=== PATIENT | male | born 1955 | race Caucasian/White ===

== ENCOUNTER → 2016-12-31 | Outpatient (CLI) | payer OTHER ==
[2016-07-19 11:37] VITALS: BP 147/84
[~2016-12-31] MED LIST: ASPI325T4 PO; BUPR150T15 PO; DOXA1TAB2 PO; DOXY100T PO; DULO60CA6 PO; ESCI10TA10 PO; ESCI20TA10 PO; FURO-68 PO; GLIM2TAB2 PO; IMIP50TA3 PO; ISOS30TA4 PO; LURA80TA PO; MELO-150 PO; METO50TA2 PO; NITR0.4T6 SL; OLAN20TA7 PO; OLME1TAB5 PO; OLME40TA PO; OLOP5DRO EACHEYE; OMEG1CAP16 PO; OXYC10TA PO; OXYC10TA32 PO; OXYC1TAB7 PO; OXYC20TA34 PO; POTA20TA12 PO; PREG150C PO; PREG200C PO; SIMV20TA PO; SIMV20TA3 PO; TAMS0.4C2 PO; TIZA4TAB PO; TIZA4TAB8 PO; ZOLP10TA4 PO
--- NOTE | 2016-12-31 10:36 | RAD ---
Lumbar spine radiographs History: Lumbar back pain, history of surgery. Comparison: CT angiography abdomen pelvis 04/20/2013. Findings: AP, lateral, and bilateral oblique views of the lumbar spine, 5 images. L2-3 and L3-4 discectomy changes are seen. There is a presence of bilateral pedicle screws at L2, L3, and L4 with bilateral bridging vertical bars. The hardware appears unchanged from a previous study. Spinal stimulator is seen which enters spinal canal at T12 level. No acute fracture is identified. L5-S1 degenerative disc disease is seen with some narrowing of the space. Multilevel facet degeneration is noted. Impression: 1. Postsurgical changes, similar to previous study. 2. No acute osseous abnormality identified.
== END | disposition home or self-care (01) ==
LOC: DXRADRC 10:06
PROVIDERS: ATTEND Physician Assistant
DX: M51.37 Other intervertebral disc degeneration, lumbosacral region (principal)
CPT/HCPCS: 72110

== ENCOUNTER 2017-07-23 22:37 | Emergency (ER) | payer OTHER ==
[~2017-07-23] VITALS: Ht 182.9 cm; Wt 98.0 kg
[~2017-07-23 22:37] MED LIST changes: -ASPI325T4 PO; +ASPI325T8 PO; -ESCI10TA10 PO; -ESCI20TA10 PO; +LEXAPRO10 MG PO; +LEXAPRO20 MG PO; -MELO-150 PO; +MELO15TA23 PO; +NITR0.4T22 SL; -NITR0.4T6 SL; +OLME1TAB25 PO; -OLME1TAB5 PO; -OLME40TA PO; +OLME40TA12 PO; -OXYC10TA32 PO; +OXYC10TA45 PO
[2017-07-23] MEDS ORDERED: NITROGLYCERIN SUBLINGUAL 0.4 MG BOTTLE OF 25. SL PRN (23:15)
[2017-07-23 23:20] VITALS: BP 158/84
[2017-07-23] MEDS: MORPHINE SULFATE 4 MG/ML DISP.SYRIN. IV/SQ PRN (23:20)
[2017-07-23] MEDS ORDERED: ASPIRIN 81 MG TAB.CHEW PO ONE (23:30)
--- NOTE | 2017-07-23 23:34 | EKG ---
[address] [address] Test Date: 2017-07-23 Test Time: 23:15:44 Pat Name: ANDRES GALICIA Department: Room: Gender: M [employer]: CEE : 1955 Requested By: BELKYS PRATHER Order Number: [id number] Reading MD: Isaac Alexander MD Measurements Intervals [place] Rate: 58 P: 11 MI: 236 QRS: -9 QRSD: 108 T: 64 QT: 408 QTc: 404 Interpretive Statements SINUS RHYTHM PVC'S PROLONGED MI INTERVAL CONSISTENT WITH ANTEROSEPTAL INFARCT PROBABLY OLD CONSISTENT WITH INFERIOR INFARCT PROBABLY OLD Electronically Signed On 07-27-2017 14:11:26 CREW LEADER by Isaac Alexander MD
[2017-07-23 23:40] LABS: BASO # 0.1 x10^3/uL (0.0-0.2); BASO % 1 % (0-3); EOS # 0.4 x10^3/uL (0.0-0.7); EOS % 5 % (0-3); HEMATOCRIT 44.8 % (39.0-53.0); HEMOGLOBIN 15.6 g/dL (13.0-17.5); LYMPH # 2.9 x10^3/uL (1.0-4.8); LYMPH % 35 % (24-48); MEAN CORPUSCULAR HEMOGLOBIN 33 pg (25-35); MEAN CORPUSCULAR HGB CONC 35 g/dL (31-37); MEAN CORPUSCULAR VOLUME 94 fL (79-100); MONO # 0.8 x10^3/uL (0.0-1.1); MONO % 10 % (0-9); NEUT # 3.9 x10^3uL (1.8-7.7); NEUT % 48 % (31-73); PLATELET COUNT 199 x10^3/uL (140-400); RED BLOOD COUNT 4.76 x10^6/uL (4.30-5.70); RED CELL DISTRIBUTION WIDTH 13.4 % (11.5-14.5); WHITE BLOOD COUNT 8.1 x10^3/uL (4.0-11.0)
[2017-07-24 00:05] LABS: ALBUMIN 3.2 g/dL (3.4-5.0); ALBUMIN/GLOBULIN RATIO 0.9 (1.0-1.7); CALCIUM 8.5 mg/dL (8.5-10.1); GFR 75.7; POTASSIUM 3.7 mmol/L (3.5-5.1); TOTAL BILIRUBIN 0.2 mg/dL (0.2-1.0); TOTAL PROTEIN 6.8 g/dL (6.4-8.2)
--- NOTE | 2017-07-24 01:44 | EKG ---
[address] [address] Test Date: 2017-07-24 Test Time: 01:36:17 Pat Name: ANDRES GALICIA Department: Room: Gender: M Management Instructor: CEE : 1955 Requested By: BELKYS PRATHER Order Number: [id number] Reading MD: Isaac Alexander MD Measurements Intervals [place] Rate: 50 P: [place]: QRS: 27 QRSD: 108 T: 94 QT: 430 QTc: 394 Interpretive Statements SUSPECT A-PACED RHYTHM NON-SPECIFIC ST/T CHANGES Electronically Signed On 07-27-2017 14:11:45 HAT CONE INSPECTOR by Isaac Alexander MD
--- NOTE | 2017-07-24 02:57 | PHYS DOC ---
Past History Past Medical History: Arthritis, CHF, Diabetes, High Cholesterol, Heart Disease , Hypertension, [place], Other Past Surgical History: Coronary Bypass Surgery Smoking: Less than 1pk/day Alcohol Use: None Drug Use: None Adult General Chief Complaint Chief Complaint: CHEST PAIN HPI HPI Patient is a 61 year old male who presents with chest pain. The patient reports 2 week history of intermittent sharp stabbing chest pain which is left sided, radiates to right chest. Reports associated shortness of breath, denies nausea or diaphoresis. Denies fevers/chills, cough, lower extremity pain/ swelling. 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 Has been intermittent, randomly occurring over past 2 weeks, had pain just prior to arrival here which is less severe now. Also has diabetes, hypertension, CHF, & is a current daily smoker. PCP is Mitchel SMITH, outboard motor assembler is Dr. Garcia. Review of Systems Review of Systems Constitutional: Denies fever or chills Eyes: Denies change in visual acuity HENT: Denies nasal congestion or sore throat Respiratory: Denies cough, reports shortness of breath Cardiovascular: Reports chest pain, denies edema GI: Denies abdominal pain, nausea, vomiting, bloody stools or diarrhea : Denies dysuria or hematuria Musculoskeletal: Denies back pain or joint pain Integument: Denies rash or skin lesions Neurologic: Denies headache, focal weakness or sensory changes All other systems were reviewed and found to be within normal limits, except as documented in this note. Current Medications Current Medications Current Medications Medications (Trade) Dose Ordered Sig/Romain Start Time Stop Time Status Last Admin Dose Admin Aspirin (Children'S Aspirin) 324 mg 1X ONCE 07/23/17 23:30 07/23/17 23:33 DC 07/23/17 23:15 324 MG Morphine Sulfate (Morphine 4mg Syringe) 4 mg PRN Q15MIN PRN 07/23/17 23:15 07/24/17 23:14 07/23/17 23:20 4 MG Nitroglycerin (Nitrostat) 0.4 mg PRN Q5MIN PRN 07/23/17 23:15 Allergies Allergies Allergies Coded Allergies Type Severity Reaction Last Updated Verified gabapentin Allergy Intermediate Itching 07/18/16 Yes Physical Exam Physical Exam Constitutional: Well developed, well nourished, no acute distress, non-toxic appearance. HENT: Normocephalic, atraumatic, bilateral external ears normal, oropharynx moist, nose normal. Eyes: conjunctiva normal, no discharge. Neck: supple, no stridor. Cardiovascular: RRR, no murmurs, no edema. Lungs & Thorax: LCTAB, no wheezing, no respiratory distress. no reproducible tenderness with palpation over anterior chest wall. Abdomen: soft, nontender, nondistended. Skin: Warm, dry, no erythema, no rash. Back: No tenderness. Extremities: No tenderness, no edema. no calf tenderness or swelling. Neurologic: Alert and oriented X 3, no focal deficits noted. Psychologic: Affect normal, judgement normal, mood normal. Current Patient Data Vital Signs Vital Signs Date Time Temp Pulse Resp B/P (MAP) Pulse Ox O2 Delivery O2 Flow Rate FiO2 07/23/17 23:20 20 97 Room Air Lab Results Laboratory Tests Test 07/23/17 23:15 White Blood Count 8.1 x10^3/uL (4.0-11.0) Red Blood Count 4.76 x10^6/uL (4.30-5.70) Hemoglobin 15.6 g/dL (13.0-17.5) Hematocrit 44.8 % (39.0-53.0) Mean Corpuscular Volume 94 fL (79-100) Mean Corpuscular Hemoglobin 33 pg (25-35) Mean Corpuscular Hemoglobin Concent 35 g/dL (31-37) Red Cell Distribution Width 13.4 % (11.5-14.5) Platelet Count 199 x10^3/uL (140-400) Neutrophils (%) (Auto) 48 % (31-73) Lymphocytes (%) (Auto) 35 % (24-48) Monocytes (%) (Auto) 10 % (0-9) H Eosinophils (%) (Auto) 5 % (0-3) H Basophils (%) (Auto) 1 % (0-3) Neutrophils # (Auto) 3.9 x10^3uL (1.8-7.7) Lymphocytes # (Auto) 2.9 x10^3/uL (1.0-4.8) Monocytes # (Auto) 0.8 x10^3/uL (0.0-1.1) Eosinophils # (Auto) 0.4 x10^3/uL (0.0-0.7) Basophils # (Auto) 0.1 x10^3/uL (0.0-0.2) Sodium Level 137 mmol/L (136-145) Potassium Level 3.7 mmol/L (3.5-5.1) Chloride Level 100 mmol/L (98-107) Carbon Dioxide Level 30 mmol/L (21-32) Anion Gap 7 (6-14) Blood Urea Nitrogen 18 mg/dL (8-26) Creatinine 1.0 mg/dL (0.7-1.3) Estimated GFR (Cockcroft-Gault) 75.7 BUN/Creatinine Ratio 18 (6-20) Glucose Level 88 mg/dL (70-99) Calcium Level 8.5 mg/dL (8.5-10.1) Magnesium Level 2.0 mg/dL (1.8-2.4) Total Bilirubin 0.2 mg/dL (0.2-1.0) Aspartate Amino Transferase (AST) 18 U/L (15-37) Alanine Aminotransferase (ALT) 20 U/L (16-63) Alkaline Phosphatase 86 U/L (46-116) Troponin I Quantitative 0.020 ng/mL (0-0.055) ZP-Ryk-R-Type Natriuretic Peptide 499 pg/mL (0-124) H Total Protein 6.8 g/dL (6.4-8.2) Albumin 3.2 g/dL (3.4-5.0) L Albumin/Globulin Ratio 0.9 (1.0-1.7) L EKG EKG interpreted by me: 2315: normal sinus rhythm rate 58, no acute ST/T wave changes, normal intervals, PACs, Q waves in inferior leads, V1-V3. lots of artifact. interpreted by me: 0136: normal sinus rhythm rate 50, no acute ST/T wave changes, normal intervals, no ectopy, Q waves in inferior leads & V2-V3. Radiology/Procedures Radiology/Procedures CXR, portable: interpreted by me: cardiomegaly, no infiltrate, no pneumothorax , sternal wires & AICD present. no acute process.[] Course & Med Decision Making Course & Med Decision Making Pertinent Labs and Imaging studies reviewed. (See chart for details) The patient presents with chest pain. Gave aspirin & nitro. Obtained labs, EKG , CXR. Had to obtain multiple EKGs as there was a significant amount of artifact, but no STEMI. Troponin in negative range. CXR stable cardiomegaly. Pain well controlled but HEART score is 5, moderate risk. Recommend admission for further evaluation & treatment. Patient agrees with plan of care. Consulted with Dr. Garcia who recommends transfer to [place] for potential heart catheterization in the morning. Discussed with Dr. Turner who agrees to accept for transfer & admission. The patient is being transferred by EMS in stable condition. [] Dragon Disclaimer Dragon Disclaimer This electronic medical record was generated, in whole or in part, using a voice recognition dictation system. Departure Departure: Impression: Primary Impression: Chest pain Disposition: 05 XFER OTHER Condition: STABLE Referrals: MELISSA ROJAS (PCP) Problem Qualifiers Primary Impression: Chest pain Chest pain type: unspecified Qualified Codes: R07.9 - Chest pain, unspecified BELKYS PRATHER MD Jul 24, 2017 02:57
[2017-07-24] MEDS: MORPHINE SULFATE 4 MG/ML DISP.SYRIN. IV/SQ PRN (04:00)
--- NOTE | 2017-07-24 07:52 | RAD ---
Single Views of the Chest 07/24/2017 1:14 AM Indication: Chest pain Comparison: Chest radiograph July 17, 2016 Findings: No pneumothorax is identified. There is a pacemaking/ICD device from a left subclavian approach. This appears grossly stable in configuration. A dorsal column stimulator appears also be present but is poorly visualized. Heart is mildly enlarged but stable. Central pulmonary vascular congestion is improved in the interim. Probable residual small left pleural effusion and underlying atelectasis noted. Impression: 1. Improved central vascular congestion and interstitial edema in the interim 2. Residual small left pleural effusion with underlying atelectasis 3. Otherwise stable chest
== END 2017-07-24 04:15 | disposition short-term general hospital (02) ==
LOC: ER 22:37
DX: R07.89 Other chest pain (principal); I11.0 Hypertensive heart disease with heart failure; I50.9 Heart failure, unspecified; E11.9 Type 2 diabetes mellitus without complications; E78.00 Pure hypercholesterolemia, unspecified; I25.2 Old myocardial infarction; M19.90 Unspecified osteoarthritis, unspecified site; F17.200 Nicotine dependence, unspecified, uncomplicated; Z95.1 Presence of aortocoronary bypass graft; Z88.8 Allergy status to other drugs, medicaments and biological substances
CPT/HCPCS: 36415; 71010; 80053; 83735; 83880; 84484; 85025; 93005; 96374; 96376; 99285; J2270

== ENCOUNTER 2018-08-09 01:36 | Emergency (ER) | payer OTHER ==
[~2018-08-09] VITALS: Ht 182.9 cm; Wt 103.2 kg
[~2018-08-09 01:36] MED LIST changes: -METO50TA2 PO; +METO50TA6 PO; -OXYC10TA45 PO; +OXYC10TA46 PO; -OXYC20TA34 PO; +OXYC20TA35 PO
[2018-08-09] MEDS ORDERED: HYDROmorphone PF 1 MG/ML DISP.SYRIN IM ONE (02:15)
[2018-08-09] MEDS ORDERED: methylPREDNISolone ACETATE 80 MG/ML VIAL. IM ONE (02:15)
--- NOTE | 2018-08-09 02:25 | PHYS DOC ---
Past History Past Medical History: Arthritis, CHF, Diabetes, High Cholesterol, Heart Disease , Hypertension, [place], Other Past Surgical History: Coronary Bypass Surgery, Other Smoking: Less than 1pk/day Alcohol Use: Rarely Drug Use: None Adult General Chief Complaint Chief Complaint: BACK PAIN - NO INJURY HPI HPI Patient is a 62 year old male who presents with complaint of low back pain. The patient has history of chronic low back pain secondary to a bulging disc in the lower lumbar spine. Patient states that this is cause problems with right lower extremity pain and weakness for several months. The patient states that he is scheduled to have spinal surgery on August 23. Patient states that currently he takes oxycodone and OxyContin for control of pain at home. Patient states that over the past 2 days he has had worsening pain and states that tonight his pain got so bad that he was not able to sleep. Patient thus came to the emergency department for pain control. Denies any new symptoms associated with this pain. Denies any preceding trauma or overexertion. Review of Systems Review of Systems Constitutional: Denies fever or chills [] Eyes: Denies change in visual acuity, redness, or eye pain [] HENT: Denies nasal congestion or sore throat [] Respiratory: Denies cough or shortness of breath [] Cardiovascular: Denies chest pain or edema[] GI: Denies abdominal pain, nausea, vomiting, bloody stools or diarrhea [] : Denies dysuria or hematuria [] Musculoskeletal: Right lower extremity pain, back pain[] Integument: Denies rash or skin lesions [] Neurologic: Chronic numbness and weakness in right lower leg[] All other systems were reviewed and found to be within normal limits, except as documented in this note. Current Medications Current Medications Current Medications Medications (Trade) Dose Ordered Sig/Romain Start Time Stop Time Status Last Admin Dose Admin Hydromorphone HCl (Dilaudid) 1 mg 1X ONCE 08/09/18 02:15 08/09/18 02:16 UNV Methylprednisolone Acetate (DEPO-Medrol IM) 80 mg 1X ONCE 08/09/18 02:15 08/09/18 02:16 UNV Allergies Allergies Allergies Coded Allergies Type Severity Reaction Last Updated Verified gabapentin Allergy Intermediate Itching 08/09/18 Yes Physical Exam Physical Exam Constitutional: Alert, afebrile, appears in mild to moderate discomfort. [] HENT: Normocephalic, atraumatic, bilateral external ears normal, oropharynx moist, no oral exudates, nose normal. [] Eyes: PERRLA, EOMI, conjunctiva normal, no discharge. [] Neck: Normal range of motion, no tenderness, supple, no stridor. [] Cardiovascular:Heart rate regular rhythm, no murmur [] Lungs & Thorax: Bilateral breath sounds clear to auscultation [] Abdomen: Bowel sounds normal, soft, no tenderness, no masses, no pulsatile masses. [] Skin: Warm, dry, no erythema, no rash. [] Back: Right lower lumbar paraspinous muscle tenderness to palpation, no midline tenderness, no flank ecchymosis. [] Extremities: No tenderness, no cyanosis, no clubbing, ROM intact, no edema. [] Neurologic: Alert and oriented X 3, normal motor function, normal sensory function, no focal deficits noted. [] Current Patient Data Vital Signs Vital Signs Date Time Temp Pulse Resp B/P (MAP) Pulse Ox O2 Delivery O2 Flow Rate FiO2 08/09/18 02:30 84 22 158/97 (117) 96 Room Air 08/09/18 01:50 97.9 Lab Results Not performed EKG EKG Not performed[] Radiology/Procedures Radiology/Procedures Not performed[] Course & Med Decision Making Course & Med Decision Making Pertinent Labs and Imaging studies reviewed. (See chart for details) Patient was administered Dilaudid and Depo-Medrol injections in the emergency department. Dragon Disclaimer Dragon Disclaimer This electronic medical record was generated, in whole or in part, using a voice recognition dictation system. Departure Departure: Impression: Primary Impression: Exacerbation of chronic back pain Disposition: 01 HOME, SELF-CARE Condition: IMPROVED Referrals: MELISSA ROJAS (PCP) Patient Instructions: Chronic Back Pain Additional Instructions: Follow-up with your primary doctor in the next 3-5 days for reevaluation. Return to emergency department for any worsening symptoms. KATHRYN PARMAR MD Aug 09, 2018 02:24
[2018-08-09 02:30] VITALS: BP 158/97
== END 2018-08-09 02:45 | disposition home or self-care (01) ==
LOC: ER 01:36
DX: G89.29 Other chronic pain (principal); M54.5 Low back pain; R53.1 Weakness; R20.0 Anesthesia of skin; M19.90 Unspecified osteoarthritis, unspecified site; I11.0 Hypertensive heart disease with heart failure; I50.9 Heart failure, unspecified; E11.9 Type 2 diabetes mellitus without complications; E78.00 Pure hypercholesterolemia, unspecified; I25.2 Old myocardial infarction; F17.200 Nicotine dependence, unspecified, uncomplicated; Z95.1 Presence of aortocoronary bypass graft; Z88.8 Allergy status to other drugs, medicaments and biological substances
CPT/HCPCS: 96372; 99284; J1040; J1170